=== PATIENT | female | born 1975 | race Asian ===

== ENCOUNTER 2017-12-07 10:08 | Outpatient (CLI) | payer OTHER ==
[2017-12-07 18:10] LABS: THYROID STIMULATING HORMONE < 0.08 uIU/mL (0.34-5.60)
[2017-12-07 18:12] LABS: FREE T4 (FREE THYROXINE) 1.96 ng/dL (0.58-1.64)
[2017-12-07 18:16] LABS: TOTAL T3 1.63 ng/mL (0.87-1.78)
== END 2017-12-07 10:09 | disposition home or self-care (01) ==
LOC: LAB.F 10:08
PROVIDERS: ATTEND Physician Assistant
DX: E05.90 Thyrotoxicosis, unspecified without thyrotoxic crisis or storm (principal)
CPT/HCPCS: 36415; 84439; 84443; 84480; 84481; 84482

== ENCOUNTER 2018-02-10 16:11 | Outpatient (CLI) | payer OTHER ==
--- NOTE | 2018-02-14 11:47 | Mammography Report ---
DIGITAL SCREENING MAMMOGRAM: 02/10/2018 CLINICAL INDICATION: A 42-year-old nulliparous patient for baseline, history of benign cyst excision. TECHNIQUE: Routine CC and MLO projections were obtained of the breasts. FINDINGS: The breasts demonstrate heterogeneously dense fibroglandular parenchyma bilaterally. A few punctate, typically benign calcifications are present. No suspicious masses, clustered microcalcifications, or regions of architectural distortion are identified. IMPRESSION: BENIGN FINDINGS. RECOMMENDATION: Routine annual screening unless otherwise clinically indicated. BI-RADS CATEGORY 2 - BENIGN FINDINGS. STANDARD QUALIFYING STATEMENTS: 1. This examination was reviewed with the aid of Computer-Aided Detection (CAD). 2. A negative or benign imaging report should not delay biopsy if clinically suspicious findings are present. Consider surgical consultation if warranted. More than 5% of cancers are not identified by imaging. 3. Dense breasts may obscure an underlying neoplasm. TD: 02/14/2018 11:33
== END 2018-02-10 16:12 | disposition home or self-care (01) ==
LOC: DI.S 16:11
PROVIDERS: ATTEND Physician Assistant
DX: Z12.31 Encounter for screening mammogram for malignant neoplasm of breast (principal); Z80.3 Family history of malignant neoplasm of breast
CPT/HCPCS: 77067

== ENCOUNTER 2020-02-20 08:00 | Outpatient (CLI) | payer OTHER | END 2020-02-20 23:59 | disposition home or self-care (01) | LOC: COV 08:00 | PROVIDERS: ATTEND Family Medicine | DX: M79.10 Myalgia, unspecified site (principal); R53.83 Other fatigue; J02.9 Acute pharyngitis, unspecified; R19.7 Diarrhea, unspecified; Z20.828 Contact with and (suspected) exposure to other viral communicable diseases | CPT/HCPCS: 81599 ==

== ENCOUNTER 2020-07-15 11:15 | Outpatient (CLI) | payer OTHER | END 2020-07-15 11:16 | disposition home or self-care (01) | LOC: COV 11:15 | PROVIDERS: ATTEND Family Medicine | DX: R05 Cough (principal); Z20.828 Contact with and (suspected) exposure to other viral communicable diseases; J02.9 Acute pharyngitis, unspecified; R19.7 Diarrhea, unspecified; R53.83 Other fatigue ==

== ENCOUNTER 2020-08-23 16:36 | Outpatient (CLI) | payer OTHER | END 2020-08-23 16:37 | disposition home or self-care (01) | LOC: COV 16:36 | PROVIDERS: ATTEND Family Medicine | DX: Z20.828 Contact with and (suspected) exposure to other viral communicable diseases (principal) ==

== ENCOUNTER 2020-09-03 16:20 | Outpatient (CLI) | payer OTHER ==
[2020-09-03 20:23] LABS: THYROID STIMULATING HORMONE 0.71 uIU/mL (0.34-5.60)
[2020-09-03 20:25] LABS: FREE T4 (FREE THYROXINE) 1.02 ng/dL (0.58-1.64)
[2020-09-03 20:30] LABS: TOTAL T3 0.96 ng/mL (0.87-1.78)
== END 2020-09-03 16:21 | disposition home or self-care (01) ==
LOC: LAB.S 16:20
PROVIDERS: ATTEND Family Medicine
DX: E05.90 Thyrotoxicosis, unspecified without thyrotoxic crisis or storm (principal)
CPT/HCPCS: 36415; 84439; 84443; 84480

== ENCOUNTER 2020-09-13 16:08 | Outpatient (CLI) | payer OTHER | END 2020-09-13 16:09 | disposition home or self-care (01) | LOC: COV 16:08 | PROVIDERS: ATTEND Family Medicine | DX: Z20.828 Contact with and (suspected) exposure to other viral communicable diseases (principal) ==